=== PATIENT | male | born 1955 | race Caucasian/White ===

== ENCOUNTER 2018-06-26 08:44 | Inpatient (IN) | payer OTHER | END 2018-06-28 18:00 | LOC: PAS IN 08:44 → ORTHO 4S 16:00 | PROC: 0SRD0JZ Replacement of Left Knee Joint with Synthetic Substitute, Open Approach (ICD-10-PCS; principal; 2018-06-26 12:03) | DX: M17.12 Unilateral primary osteoarthritis, left knee (principal) ==